=== PATIENT | female | born 1980 | race Caucasian/White ===

== ENCOUNTER 2018-03-04 19:46 | Emergency (ER) | payer OTHER ==
[~2018-03-04] VITALS: Ht 152.4 cm; Wt 68.1 kg
[2018-03-04 19:51] VITALS: BP 108/58
[2018-03-04 20:49] LABS: HCG SERUM QL NEGATIVE
== END 2018-03-04 21:07 ==
LOC: ER 19:47
DX: F11.90 Opioid use, unspecified, uncomplicated (principal); Z02.89 Encounter for other administrative examinations; F17.200 Nicotine dependence, unspecified, uncomplicated
CPT/HCPCS: 36415; 84703; 99283